=== PATIENT | female | born 1995 | race Caucasian/White ===

== ENCOUNTER 2016-06-09 08:07 | Inpatient (IN) | payer BC, OTHER ==
[2016-06-09] MEDS ORDERED: KETOROLAC 15 MG/1 ML SDV ONE (08:32)
[2016-06-09] MEDS ORDERED: METOCLOPRAMIDE 10 MG/2 ML VIAL ONE (08:32)
--- NOTE | 2016-06-09 08:34 | EDPHY ---
H & P Stated Complaint: BUCK x 4 days, vomiting, +LOC fall in shower this am. 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 - Social History Smoking Status: Never smoked Constitutional: Initial Vital Signs Temperature (C) 36.5 C 06/09/16 08:12 Heart Rate 76 06/09/16 08:12 Respiratory Rate 16 06/09/16 08:12 Blood Pressure 115/81 H 06/09/16 08:12 O2 Sat (%) 98 06/09/16 08:12 O2 Delivery Mode Room Air Allergies/Adverse Reactions: amoxicillin Allergy (Intermediate, Verified 06/09/16 08:16) Rash Cephalosporins Allergy (Intermediate, Verified 06/09/16 08:23) Rash Home Medications: Medication Instructions Recorded NK [No Known Home Meds] 06/09/16 Medical Decision Making - Diagnostics Imaging Results: Imaging Impressions Brain MRI 06/09/16 08:41 Impression: 1. Interval increase in size of cavernous malformation left basal ganglia secondary to interval hemorrhage since the prior study. No additional cavernous malformation is seen. 2. Edema is present around the hemorrhagic cavernous malformation left basal ganglia as well as extending into the left cerebral peduncle and superior peter and along the periventricular white matter. 3. Compression upon the body of the left lateral ventricle and third ventricle with midline shift from left to right by about 7-8 mm. These findings were discussed by telephone with the diagnostic medical sonographer with Dr. Shaka Fields at 1010hrs. Imaging: Discussed imaging studies w/ director call Radiologist ED Course/Re-evaluation: CHIEF COMPLAINT: Headaches, vomiting, syncope, worsening tremors HISTORY OF PRESENT ILLNESS: The patient is a 20 y/o female, with a history of left basal ganglia cavernoma, arriving with her family complaining of frontal left-sided headaches and vomiting worsening since Sunday, 3 days ago, and syncopal event today. Her headaches have been intermittent over the last few days and severe enough at times to keep her home from work. By afternoon, her headache worsened significantly. This morning while showering she had what she describes as a syncopal event. She remembers sitting on the bench of the shower then waking up outside of the shower on the floor. She denies any trauma or injury from this event. This was followed by persistent dry heaving until her arrival here. She denies weakness, paresthesias, or balance difficulty. She does note for the last 6-12 months she has ongoing tremulousness in her right hand and right toes that has worsened over the last week since her headaches began. Her mother notes she had a Stacey IUD placed 3 weeks ago. REVIEW OF SYSTEMS: A 10 point review of systems was performed and is negative with the exception of the elements mentioned in the history of present illness. PHYSICAL EXAM: General Appearance: Alert, well hydrated, appropriate, and non-toxic appearing. Head: Atraumatic without scalp tenderness or obvious injury Eyes: Pupils equal, round, reactive to light and accommodation, EOMI, no trauma , no injection. Ears: Clear bilaterally, no perforation, normal landmarks Nose: Atraumatic, no rhinorrhea, clear. Throat: mucus membranes moist. Neck: Supple, non-tender, no lymphadenopathy. Respiratory: No retractions, no distress, no wheezes, and no accessory muscle use. Lungs are clear to auscultation bilaterally. Cardiovascular: Regular rate and rhythm, no murmurs, rubs, or gallops. Good capillary refill all extremities. Gastrointestinal: Abdomen is soft, non-tender, non-distended, no masses, no rebound, no guarding, no peritoneal signs. Musculoskeletal: Normal active ROM of all extremities, atraumatic. Neurological: Alert, appropriate, and interactive. Tremulousness to right hand and right toes. Otherwise the patient has normal DTRs and non-focal cranial nerves, motor, sensory, and cerebellar exam. Skin: No rashes, good turgor, no nodules on palpation. 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 Followed by [facility] with [place] - Dr. Khadijah Escamilla OBGYN: Dr. Domitila Jefferson DIAGNOSTICS/PROCEDURES/CRITICAL CARE TIME: Brain MRI shows: Increase in size of cavernosum and hemorrhage since 01/27/17, edema around hemorrhage, and left midline shift about 7-8mm. DIFFERENTIAL DIAGNOSIS: The differential diagnosis for the patient's headache included but was not limited to subarachnoid hemorrhage, migraine headache, tension headache and infectious causes such as meningitis, pharyngitis and sinusitis. MEDICAL DECISION MAKING: This is a 20 y/o female with a history of left basal ganglia cavernoma and prior brain bleed presenting with a 3-day history of worsening headaches, nausea , and right extremity tremors. She does have mild tremors to her right fingers and right toes, but otherwise her physical exam is unremarkable. Plan for symptomatic headache treatment and radiology consult regarding brain MRI compatibility with her Stacey. Patient's mother would like to avoid radiation of a Head CT if possible. They do have her most recent Brain MRI images with them if needed. 5mg IV Reglan administered. 0835: Consulted with Dr. Maguire and Dr. Barger from radiology regarding best brain imaging test and safety of Stacey IUD with MRI. CT is the best choice as it will be more sensitive for acute bleed, but MRI is acceptable test if needed. Regarding safety, Stacey IUD is safe for 3T or 1.5T scanner. I discussed the radiologist's recommendation for a CT to asses for acute bleeding, but her mother adamantly refuses to have a CT performed if we are able to do an MRI because she wants to limit radiation exposure. I explained the CT is a more sensitive test for potential acute intracranial issues, but the patient and her family prefer MRI first. We will reassess the need for a CT following MRI results. 1015: Dr. Lorenzo reports MRI shows worsening hemorrhage and left midline shift of 7-8mm compared to previous MRI. Patient's neurosurgeon, Dr. Khadijah Escamilla, paged for consult. 1027: Consulted with Dr. Sibley, neurologist covering for Dr. Escamilla. He states there is no benefit to transferring patient and recommends consulting our on- call neurosurgeon to develop treatment plan. 1032: Consulted with Dr. Rosales, neurosurgeon. He will evaluate her in the ED. Dr. Reyez is also aware of the patient. 1046: Reassessed patient and updated patient and family on MRI results. I answered all their questions. She continues to have a headache. 2mg IV Morphine and 1L IV NS administered. NPO status maintained. 1150: Consulted with Dr. Guerrero, neurosurgeon, in the ED. He will assess patient here in the ED. He states she will require surgery, likely by Dr. Reyez. 1210: Patient will be admitted to Dr. Matias to the step-down unit. 1228: Dr. Matias reports family may want to see a different neurosurgeon for this surgery, but they are willing to wait to consult with Dr. Reyez while here. Dr. Reyez will be here around 15:00. Dr. Matias highly recommended to the family staying here for surgery. Hold off on admission for now. I checked in with family to answer any additional questions I could for them. They have indicated they may want to remove patient's IUD today. We will consult OBGYN if needed. - Data Points Medications Given: Discontinued Medications Metoclopramide HCl (Reglan Injection) 5 mg IVP EDNOW ONE Stop: 06/09/16 09:07 Last Admin: 06/09/16 09:06 Dose: 5 mg Morphine Sulfate (Morphine) 2 mg IVP EDNOW ONE Stop: 06/09/16 10:57 Last Admin: 06/09/16 11:00 Dose: 2 mg Morphine Sulfate (Morphine) 2 mg IVP EDNOW ONE Stop: 06/09/16 13:47 Last Admin: 06/09/16 13:54 Dose: 2 mg Ondansetron HCl (Zofran) 4 mg IVP EDNOW ONE Stop: 06/09/16 13:47 Last Admin: 06/09/16 13:48 Dose: 4 mg Departure - Departure Disposition: [facility] Inpatient Acute Clinical Impression: Cerebral cavernoma, Intracranial hemorrhage, Midline shift of brain Headache Qualifiers: Headache type: other headache syndrome Qualified Code(s): G44.89 - Other headache syndrome Condition: Serious Report Scribed for: Shaka Fields Report Scribed by: Shelli Humphries Date of Report: 06/09/16 Time of Report: 12:08
[2016-06-09] MEDS ORDERED: METOCLOPRAMIDE 10 MG/2 ML VIAL IVP ONE (09:06)
[2016-06-09] MEDS ORDERED: ONDANSETRON 4 MG/2 ML VIAL IVP ONE ×2 (13:46→17:40)
--- NOTE | 2016-06-09 14:01 | GCON ---
[f rep st] CONSULTATION EMERGENCY ROOM CONSULT. DATE OF CONSULTATION: 06/09/2016 CHIEF COMPLAINT: The patient is a 20-year-old woman with an intracranial mass lesion. HISTORY OF PRESENT ILLNESS: The patient has a known cavernous malformation in her left brainstem ar ea that was diagnosed in November of 2015. She had a repeat scan in January, when she had some new symptoms, and has seen 3 different neurosurgeons since being diagnosed. All these were in [facility] all of them recommended observation with serial imaging studies. Today, she presents with weakne ss in her left upper extremity and an episode of blacking out. She was taken to [facility] emergency room, where an MRI of the brain demonstrated a left-sided deep frontoparietal mass extending into the left cerebral peduncle area consistent with her prior diagnosis of a cavernous m alformation that bled. She presents now for neurosurgical consultation. She does complain of a hea dache and some slight right upper extremity weakness, and shakiness in her right lower extremity. PAST MEDICAL AND SURGICAL HISTORY: History of cavernous malformation that bled, as noted above. MEDICATIONS ON ADMISSION: None. DRUG ALLERGIES: Amoxicillin. FAMILY HISTORY: Noncontributory. SOCIAL HISTORY: The patient recently graduated from college last year, and works in an [employer]. She has no kids. She drinks socially, very minimally, and does not smoke. DIAGNOSTIC STUDIES: An MRI of the brain demonstrates an approximately 4 cm lesion in the left basal ganglia deep white matter area extending into the left cerebral peduncle, causing significant mass effect, and is consistent with evolving blood of different ages from multiple prior bleeds, and the cavernous malformation, of which she has a history. There is no significant hydrocephalus, but ther e is significant shifting of the ventricles, and in this is a potential concern. IMPRESSION/RECOMMENDATIONS: This is a 20-year-old woman with headaches and a syncopal episode, and right upper and lower extremity very slight weakness and shakiness, who has a very large lesion in h er left basal ganglia/deep white matter/cerebral peduncle area, causing significant mass effect. Th is is consistent with her prior diagnosis of a cavernous malformation that has bled. I think that c ontinued observation with serial imaging studies will likely result in further bleeding and enlargem ent of the mass and significant neurologic deficit, and possibly , especially if she traps a ve ntricle and develops rapid hydrocephalus. All these issues were discussed with the patient. The op tion of continuing observation with serial imaging studies was also discussed. I have recommended t hat she see my colleague, Dr. Jaxon Reyez, who is currently at another hospital, but will be over her e within a few hours and can discuss further treatment options. The patient and family are consider ing going back to [place] for treatment under Dr. Mireles, and I explained that this is certainly an option. /[id number]/MODL
[2016-06-09] MEDS ORDERED: DEXAMETHASONE 10 MG/ML VIAL ONE (16:51)
[2016-06-09] MEDS ORDERED: DEXAMETHASONE 4 MG/ML VIAL IVP ONE (16:55)
[2016-06-09] MEDS ORDERED: ONDANSETRON 4 MG/2 ML VIAL ONE (16:57)
[2016-06-09] MEDS ORDERED: MAGNESIUM HYDROXIDE 30 ML UDCUP PO PRN (17:07)
[2016-06-09] MEDS ORDERED: POLYETHYLENE GLYCOL 3350 17 GM PKT PO PRN (17:07)
[2016-06-09] MEDS ORDERED: HYDROCODONE/APAP 5/325 TAB PO PRN (17:07)
[2016-06-09] MEDS ORDERED: ACETAMINOPHEN 325 MG TAB PO PRN (17:07)
[2016-06-09] MEDS ORDERED: LORazepam 2 MG/ML INJ IVP PRN (17:07)
[2016-06-09] MEDS ORDERED: ONDANSETRON DISINTEGRATING 4 MG TAB PO PRN (17:07)
[2016-06-09] MEDS ORDERED: LACTULOSE 20 GM/30 ML UDCUP PO PRN (17:07)
[2016-06-09] MEDS ORDERED: ONDANSETRON 4 MG/2 ML VIAL IVP PRN ×2 (17:07→17:40)
[2016-06-09] MEDS ORDERED: BISACODYL 10 MG SUPP PR PRN (17:07)
[2016-06-09] MEDS ORDERED: D5W 1/2 NS W/ 20 KCl/L 1,000 ML IV SCH (17:15)
[2016-06-09] MEDS ORDERED: niCARdipine/NACL 200 ML IV SCH (17:30)
[2016-06-09] MEDS ORDERED: *MD ORDERING ONLY-DEXAMETHASONE TAPER IVP/PO SCH (17:30)
[2016-06-09] MEDS: SENNOSIDES/DOCUSATE SODIUM TAB PO SCH (20:32)
--- NOTE | 2016-06-09 20:57 | GCON ---
[f rep st] CONSULTATION NEUROSURGERY CONSULT PATIENT WAS SEEN AND EVALUATED AT APPROXIMATELY 3:30 P.M. IN THE [facility] DEPARTMENT. A FULL H AND P WAS DICTATED BY MY PARTNER, DR. ACOSTA, AND I WAS ASKED TO SEE THE PATIENT GIVEN MY SPECIALTY IN VASCULAR NEUROSURGERY. I CAME TO SEE THE PATIENT AND HER FAMILY IN THE [facility] EM[facility]GENCY DEPARTMENT TO Jas MCKEON HER NEW BLEED FROM A KNOWN LEFT THALAMIC/BASAL GANGLIA CAVERNOUS MALFORMATION. SHE HAD A KNO WN CAVERNOUS MALFORMATION MEASURING APPROXIMATELY 1.5 TO 2 CM IN THE AREA VERY NEAR THE POSTERIOR LI MB OF THE INTERNAL CAPSULE ON THE LEFT SIDE. SHE HAS HAD INTERMITTENT SYMPTOMS OF THE RIGHT ARM LEG FOR ABOUT 1 YEAR. SHE SAYS HER HANDWRITING HAS BECOME POOR ON THE RIGHT SIDE, BUT SHE STILL WRITES WITH HER RIGHT HAND. SHE HAS NOTICED SOME INTERMITTENT FACIAL DROOP. HER SYMPTOMS HAVE GOTTEN LOUISA EWHAT WORSE SINCE . THIS PAST WEEK, FOR THE LAST 5 DAYS, SHE HAS DEVELOPED SOME SEVER E HEADACHES, WHICH BROUGHT HER TO SEEK ATTENTION IN THE ER TODAY. SHE IS AN OTHERWISE HEALTHY 20-YE AR-OLD. REVIEWING HER IMAGES, SHE NOW HAS A ROUGHLY 4 CM MASS WITH [id number] HEMORRHAGE ON THE SUPER IOR ASPECT OF THE CAVERNOUS MALFORMATION. THE POSTERIOR LIMB OF THE INTERNAL CAPSULE IS RELATIVELY OBLITERATED ON THIS MRI SCAN, AND THERE IS SOME EFFACEMENT OF THE LATERAL VENTRICLE AND SOME SURROUN DING VASOGENIC EDEMA. I SPENT NEARLY 2 HOURS DISCUSSING THE NATURAL HISTORY OF CAVERNOUS MALFORMATI ONS AND POSSIBLE SURGICAL OPTIONS WITH THEM. I TOLD THEM THAT THESE GENERALLY ROUGHLY HAVE ABOUT A 1% PER YEAR RISK OF MICRO-HEMORRHAGE WHICH MAY OR MAY NOT BE SYMPTOMATIC. THE LIKELIHOOD IS THAT TH E BLOOD WOULD EVENTUALLY RESOLVE FROM THIS BLEED, BUT THE MASS EFFECT MAY EVENTUALLY CAUSE HER MORE NEUROLOGIC SYMPTOMS, AND IT IS LIKELY THAT THIS WOULD REBLEED AT SOME POINT IN THE FUTURE. WE DISCU SSED THE POSSIBILITY OF JUST SERIAL IMAGING AND WATCHING THIS LESION, AND WE ALSO DISCUSSED SURGICAL OPTIONS. IN TERMS OF SURGERY, I TOLD THEM THAT I WOULD PREFER TO WAIT 3-4 WEEKS TO ALLOW THE SUBAC HOH AND ACUTE HEMORRHAGE TO LIQUIFY, MAKING SURGERY MUCH EASIER. THE SURGICAL ROUTES THAT WOULD BE POSSIBLE FOR THIS WOULD BE TRANS-SYLVIAN TRANS-INSULAR, WHICH I DO NOT FAVOR DUE TO HER SPEECH AREAS BEING VERY CLOSE TO THAT AREA). ANOTHER OPTION WOULD BE TRANS-CALLOSAL, WHICH MAY BE A GOOD OPTION GIVEN THAT THE ACUTE HEMORRHAGE COMES VERY CLOSE TO THE SURFACE IN THE VENTRICLE OF THE THALAMUS. YET ANOTHER OPTION WOULD BE A MINIMALLY INVASIVE RESECTION USING A TUBULAR RETRACTOR FROM A FRONTAL TRAJECTORY. WHAT I WOULD LIKE TO DO FOR HER WOULD BE ADMIT HER TO THE HOSPITAL FOR HEADACHE CONTROL . WE WILL START SOME STEROIDS AND ALLOW HER TO GET BETTER IN TERMS OF HER HEADACHES AND HER VERY IL NIMAL ARM SYMPTOMS AT THIS TIME. I WILL SEE HER IN THE CLINIC NEXT WEEK, AND I WILL TRY TO ARRANGE FOR FIBER TRACT IMAGING SO THAT WE CAN EVALUATE WHERE EXACTLY HER MOTOR TRACTS ARE TRAVELING, GIVEN THAT THIS IS CENTERED NEARLY IN THE POSTERIOR LIMB OF THE INTERNAL CAPSULE. IT IS SURPRISING THAT S HE DOES NOT HAVE MORE NEUROLOGIC SYMPTOMS. DEPENDING ON WHERE THE MOTOR FIBERS ARE TRAVELING AROUND THIS HEMORRHAGE, I WOULD PICK EITHER A TRANS-CALLOSAL OR MINIMALLY INVASIVE TRAJECTORY LIKELY AND P ROBABLY RECOMMEND SURGERY IN 3-4 WEEKS. I SPENT QUITE SOME TIME DISCUSSING THIS AND ANSWERING ALL T HEIR QUESTIONS TO THEIR SATISFACTION. THEY ASKED ME TO CALL DR. ROMÁN REYES, WHO IS A NEUROSURGEON A [place] A FAMILY FRIEND IN [place], AND I CALLED AND SPOKE WITH HIM, WELL. IF THEY ARE DISCHARGED O ALY THE WEEKEND, I TOLD THEM THAT IF SHE SHOULD HAVE ANY WORSENING NEUROLOGIC SYMPTOMS, OR INCREASE IN THE INTENSITY OF HER HEADACHES, SHE SHOULD DEFINITELY RETURN FOR REPEAT IMAGING, BUT IT IS QUITE UNLIKELY FOR THESE CAVERNOUS MALFORMATIONS TO CAUSE ABRUPT DECLINE. WE WILL SEE HOW SHE IS DOING TO ROD MORNING, AND OUR TEAM WILL SEE HER AT THAT POINT. WE WILL MAKE SURE SHE HAS CLOSE FOLLOWUP, AND THE FAMILY IS QUITE HAPPY WITH THIS. DATE OF CONSULTATION: 06/09/2016 /[id number]/MODL
[2016-06-09] MEDS: DEXAMETHASONE 4 MG TAB PO SCH (23:41)
[2016-06-10] MEDS: DEXAMETHASONE 4 MG TAB PO SCH ×3 (06:39→19:18)
--- NOTE | 2016-06-10 06:45 | NEUSURGPN ---
Assessment/Plan: Assessment: 20 yo female that was admitted with HAs and enlarging cavenous malformation Plan: -enlarging caverous malformation: Pt with caverous malformation that is scheduled for surgery in the next few weeks -pt with BUCK's-stable at this time -continue with steroids as written-7 day taper -PT/OT ordered -q2hr neuro checks -plan to watch today and dc in am to home with follow up with Dr Reyez this week for planning -warning signs given -call with any questions or concerns Subjective: Awake and alert. NAD. Eating/drinking and voiding. Objective: AAO x 3, PERRLA/EOMI left sided mild droop otherwise CN 2-12 grossly intact SANTIAGO x 4 +lt touch 5/5 BUE/BLE = except right hand vp business development weakness when c/w left 4+/5 Neuro Check Frequency: per routine Urinary Catheter in Place: No - Physician Discussed Patient with Dr.: Reyez Neurosurgery Physical Exam - Vitals, I&O, Labs I and O 06/09/16 06/10/16 06/11/16 05:59 05:59 05:59 Intake Total 800 Balance 800 Weight 52.617 kg Intake: IV Infused (ml) 800 Vital Signs Temp Pulse Resp BP Pulse Ox 37.2 C 59 L 15 104/50 L 94 06/09/16 21:08 06/10/16 03:52 06/10/16 03:52 06/10/16 03:52 06/10/16 03:52 ICD10 Worksheet Patient Problems: Problems Problem Status Onset Cerebral cavernoma Acute Headache Acute Intracranial hemorrhage Acute Midline shift of brain Acute
[2016-06-10] MEDS: SENNOSIDES/DOCUSATE SODIUM TAB PO SCH ×3 (07:59→19:19)
[2016-06-11] MEDS: DEXAMETHASONE 4 MG TAB PO SCH ×3 (00:17→12:47)
[2016-06-11 07:37] VITALS: PULSE 64; O2SAT 97
[2016-06-11] MEDS: SENNOSIDES/DOCUSATE SODIUM TAB PO SCH (09:11)
--- NOTE | 2016-06-11 10:19 | NEUSURGPN ---
Assessment/Plan: Assessment: 20 yo female that was admitted with HAs and enlarging cavenous malformation Plan: -enlarging caverous malformation: Pt with caverous malformation that is scheduled for surgery in the next few weeks -pt with BUCK's-stable at this time -continue with steroids as written-7 day taper- script in chart for this -PT/OT ordered -q4 hr neuro checks -plan to dc home today and follow up with Dr. Reyez in clinic this week for follow up -warning signs given -call with any questions or concerns Subjective: Patient slept well. Denies headaches this am. Denies n/v, dizziness. Objective: AAO x 3, PERRLA/EOMI left sided mild droop otherwise CN 2-12 grossly intact SANTIAGO x 4 +lt touch 5/5 BUE/BLE = except right hand medical receptionist weakness when c/w left 4+/5 - Physician Discussed Patient with : [facility] Neurosurgery Physical Exam - Vitals, I&O, Labs I and O 06/10/16 06/11/16 06/12/16 05:59 05:59 05:59 Intake Total 2172 1150 400 Balance 2172 1150 400 Weight 52.617 kg Intake: Oral (ml) 740 1150 400 IV Infused (ml) 1432 D5W 1/2 NS W/ 20 KCl/L 1, 632 000 ml @ 75 mls/hr IV CONT FAY Rx#:[id number] Other: Number of Voids Toilet 6 2 Vital Signs Temp Pulse Resp BP Pulse Ox 36.7 C 64 16 119/63 97 06/11/16 07:34 06/11/16 07:34 06/11/16 07:34 06/11/16 07:34 06/11/16 07:34 ICD10 Worksheet Patient Problems: Problems Problem Status Onset Cerebral cavernoma Acute Headache Acute Intracranial hemorrhage Acute Midline shift of brain Acute
[2016-06-11 11:42] VITALS: BP 102/57; RESP 14; TEMP 98.3
[2016-06-11 12:56] LABS: % IMMATURE GRANULYOCYTES 0.1 % (0.0-1.1); ABSOLUTE IMMATURE GRANULOCYTES 0.01 10^3/uL (0.00-0.10); ADD DIFF? NO; ADD MORPH? NO; ADD SCAN? NO; ATYPICAL LYMPHOCYTE FLAG 0 (0-99); FRAGMENT RBC FLAG 0 (0-99); HEMATOCRIT 42.5 % (38.0-47.0); HEMOGLOBIN 14.5 g/dL (12.6-16.3); LEFT SHIFT FLG 0 (0-99); LIPEMIA HEMOLYSIS FLAG 90 (0-99); MEAN CELL HEMOGLOBIN 32.5 pg (27.9-34.1); MEAN CELL HEMOGLOBIN CONCENTR. 34.1 g/dL (32.4-36.7); MEAN CELL VOLUME 95.3 fL (81.5-99.8); MEAN PLATELET VOLUME 11.5 fL (8.7-11.7); PLATELET CLUMPS FLAG 0 (0-99); PLATELET COUNT 237 10^3/uL (150-400); RED BLOOD CELL COUNT 4.46 10^6/uL (4.18-5.33); RED CELL DISTRIBUTION WIDTH 11.6 % (11.5-15.2)
[2016-06-11 13:04] LABS: ANION GAP 12 mEq/L (8-16); CALCIUM 10.2 mg/dL (8.5-10.4); CARBON DIOXIDE 26 mEq/l (22-31); CHLORIDE 104 mEq/L (97-110); CREATININE 0.7 mg/dL (0.6-1.0); GLOMERULAR FILTRATION RATE > 60; GLUCOSE 86 mg/dL (70-100); POTASSIUM 4.1 mEq/L (3.5-5.2); SODIUM 142 mEq/L (134-144)
[2016-06-12] MEDS ORDERED: DEXAMETHASONE 4 MG TAB PO SCH
[2016-06-13] MEDS ORDERED: DEXAMETHASONE 4 MG TAB PO SCH
[2016-06-14] MEDS ORDERED: DEXAMETHASONE 4 MG TAB PO SCH (09:00)
[2016-06-15] MEDS ORDERED: DEXAMETHASONE 2 MG TAB PO SCH (09:00)
[2016-06-16] MEDS ORDERED: DEXAMETHASONE 2 MG TAB PO SCH (09:00)
== END 2016-06-11 14:43 | disposition home or self-care (01) | DRG 93 ==
LOC: F2N 19:18 → F3N 06-10 11:57
PROVIDERS: ADMIT Neurological Surgery; ATTEND Neurological Surgery
DX: Q28.3 Other malformations of cerebral vessels (principal); W08.XXXA Fall from other furniture, initial encounter; Y93.E1 Activity, personal bathing and showering
CPT/HCPCS: 92523-GN; 96374; 97161-GP; J1200; J1885; J2405; J2765

== ENCOUNTER → 2016-08-08 | Outpatient (CLI) | payer BC | LOC: FIMAGING 18:37 | PROVIDERS: ATTEND Neurological Surgery | DX: Q28.3 Other malformations of cerebral vessels (principal); R60.9 Edema, unspecified ==